=== PATIENT | male | born 1960 | race Caucasian/White ===

== ENCOUNTER 2016-06-15 18:43 | Emergency (ER) | payer BC ==
[2016-06-15 18:57] VITALS: BP 157/99; PULSE 73; TEMP 97.6; BMI 27.4
--- NOTE | 2016-06-15 19:45 | PDOC ---
History of Present Illness - General History Source: Patient Exam Limitations: No Limitations - History of Present Illness Initial Comments: 06/15/16 19:40 56 year old male with no significant medication or surgical history present with complaints of left eye injury while working cutting a pipe in the basement. States pipe slipped and hit him in his left eye. Reports no blurred vision, but with discomfort and itching since incident. States using red eye relief since then. 06/15/16 19:42 Timing/Duration: other (2 days ago ) Severity: moderate Modifying Factors: improves with: medication Associated Symptoms: reports: headaches. denies: fever/chills, nausea/vomiting , seizure, shortness of breath Aspirin Received prior to arrival: Yes: no aspirin today Asa Contraindications(Core Measure): No: Allergy Beta Johanne Contraindications(Core Measure): Yes: Not Prescribed Beta Johanne Given by EMS(Core Measure): No Beta Johanne Taken at Home(Core Measure): No Beta Johanne Not Indicated at this Time(Core Measure): No <Elisabet Arguello - Last Filed: 06/15/16 20:13> <Naya Pérez - Last Filed: 06/16/16 00:06> - General Chief Complaint: Eye Problem Stated Complaint: EYE PROBLEM Time Seen by Provider: 06/15/16 19:12 Past History - Travel Traveled outside of the country in the last 30 days: No Close contact w/someone who was outside of country & ill: No - Past Medical History Other medical history: none - Psycho/Social/Smoking Cessation Hx Anxiety: No Suicidal Ideation: No Smoking History: Never smoked Have you smoked in the past 12 months: No Information on smoking cessation initiated: No Hx Alcohol Use: No Drug/Substance Use Hx: No Substance Use Type: None <Elisabet Arguello - Last Filed: 06/15/16 20:13> <Naya Pérez - Last Filed: 06/16/16 00:06> - Past Medical History Allergies/Adverse Reactions: Allergies Allergy/AdvReac Type Severity Reaction Status Date / Time No Known Allergies Allergy Verified 06/15/16 18:54 Home Medications: Ambulatory Orders NK [No Known Home Medication] 06/15/16 Review of Systems - Review of Systems Able to Perform ROS?: Yes Is the patient limited Tunisian proficient: No Constitutional: Yes: Malaise. No: Chills, Fever, Loss of Appetite, Night Sweats , Weakness HEENTM: Yes: Eye Pain, Tearing, Other (redness and swelling of left eye). No: Blurred Vision Respiratory: No: Cough, Shortness of Breath, Wheezing Cardiac (ROS): No: Irregular Heart Rate, Lightheadedness ABD/GI: No: Difficulty Swallowing, Nausea, Poor Appetite, Poor Fluid Intake : No: Hematuria, Incontinence, Testicular Swelling, Lesions Musculoskeletal: No: Back Pain, Muscle Weakness Integumentary: No: Erythema, Flushing Neurological: Yes: Headache. No: Numbness, Paresthesia <Elisabet Arguello - Last Filed: 06/15/16 20:13> *Physical Exam - Vital Signs Last Vital Signs Temp Pulse Resp BP Pulse Ox 97.6 F 73 18 157/99 100 06/15/16 18:54 06/15/16 18:54 06/15/16 18:54 06/15/16 18:54 06/15/16 18:54 - Physical Exam General Appearance: Yes: Nourished, Appropriately Dressed. No: Apparent Distress HEENT: positive: EOMI, GIOVANNY, Normal ENT Inspection, TMs Normal, Pharynx Normal, Scleral Icterus (L), Other (left eye with fluracein stain, positive uptake at 9 O'clock) Neck: positive: Supple. negative: Lymphadenopathy (R), Lymphadenopathy (L) Respiratory/Chest: positive: Lungs Clear, Normal Breath Sounds. negative: Respiratory Distress, Accessory Muscle Use Cardiovascular: positive: Regular Rhythm, Regular Rate, S1, S2 Extremity: positive: Normal Capillary Refill, Normal Inspection, Normal Range of Motion <Elisabet Arguello - Last Filed: 06/15/16 20:13> - Vital Signs Last Vital Signs Temp Pulse Resp BP Pulse Ox 97.6 F 73 18 157/99 100 06/15/16 18:54 06/15/16 18:54 06/15/16 18:54 06/15/16 18:54 06/15/16 18:54 <Naya Pérez - Last Filed: 06/16/16 00:06> ED Treatment Course - Medications Given in the ED: ED Medications Discontinued Medications Generic Name Dose Route Start Last Admin Trade Name Freq PRN Reason Stop Dose Admin Acetaminophen 1,000 mg 06/15/16 19:48 06/15/16 19:52 Tylenol - PO 06/15/16 19:49 1,000 mg ONCE ONE Administration Ketorolac Tromethamine 60 mg 06/15/16 21:55 06/15/16 21:59 Toradol Injection - IM 06/15/16 21:56 60 mg ONCE ONE Administration <Naya Pérez - Last Filed: 06/16/16 00:06> Medical Decision Making - Medical Decision Making 06/15/16 19:45 56 year old male with injury to left eye head ct 06/15/16 20:04 transferred to [facility]ICER Ervin Ponce for follow up with ct scan and disposition <Elisabet Arguello - Last Filed: 06/15/16 20:13> - Medical Decision Making 06/15/16 23:58 I evaluated patient and discussed CT-Scan results with patient and family regarding nasal bone fx. Razo lamp examination revealed no corneal abrasion, but metal foreign body in left eye with upper and lower lid swelling. Patient given tetanus and started on Augmentin for nasal bone fx. Discussed treatment plan with family who verbalized understanding. <Naya Pérez - Last Filed: 06/16/16 00:06> *DC/Admit/Observation/Transfer <Elisabet Arguello - Last Filed: 06/15/16 20:13> - Discharge Dispostion Admit: No <Naya Pérez - Last Filed: 06/16/16 00:06> Diagnosis at time of Disposition: Nasal bone fracture Qualifiers: Encounter type: initial encounter Fracture type: closed Qualified Code(s): S02.2XXA - Fracture of nasal bones, initial encounter for closed fracture Foreign body in eye Qualifiers: Encounter type: initial encounter Laterality: left Qualified Code(s): T15.92XA - Foreign body on external eye, part unspecified, left eye, initial encounter - Discharge Dispostion Disposition: HOME Condition at time of disposition: Stable - Referrals Referrals: Nereida Macias MD [Staff Physician] - - Patient Instructions Printed Discharge Instructions: DI for Foreign Body in the Eye, DI for Nose Fracture Additional Instructions: FOLLOW UP WITH DR. GUNN (OPHTHALOMOLOGY). CALL TO SCHEDULE APPOINTMENT TOMORROW. TAKE MEDICATIONS PRESCRIBED. ADMINISTER EYE DROPS FOLLOWS: 2 DROPS TO LEFT EYE EVERY 4 HOURS WHILE AWAKE X 2 DAYS, THEN 1 DROP EVERY 4 HOURS WHILE AWAKE X 3 DAYS. YOU MUST FOLLOW UP WITH AN ROOM SERVICE SERVER OR RECORD CENTER SPECIALIST WITHIN 72 HOURS. IF UNABLE RETURN TO EMERGENCY DEPARTMENT IMMEDIATELY. Rene GUNN (OPHTHALOMOLOGY). Thirrje pr plan t takimeve nesr. Elizabeth medikateodoroe si prshkruhet. Administruar angiea sy si m posht: 2 pika majtas EYE do 4 or ndrsa zgjuar X2 dit, pastaj 1 pik do 4 or ndrsa zgjuar X 3 ditve. Verito presley traveling sales executive ose ferozst bonilla 74 orve. ANDRES CHOE T CHAOAMENTADÁN borrero. Print Language: JAPANESE - Post Discharge Activity Work/School Note: Back to Work
[2016-06-15] MEDS ORDERED: ACETAMINOPHEN 500 MG TABLET (FP) PO ONE (19:48)
[2016-06-15] MEDS ORDERED: ACETAMINOPHEN 500 MG TABLET (FP) ONE (19:51)
[2016-06-15] MEDS ORDERED: KETOROLAC TROMETHAMINE 60 MG/2 ML VIAL ONE (21:55)
[2016-06-15] MEDS ORDERED: KETOROLAC TROMETHAMINE 60 MG/2 ML VIAL IM ONE (21:55)
[2016-06-15] MEDS ORDERED: FLUORESCEIN NA 1 EA STRIP OS ONE (23:24)
[2016-06-15] MEDS ORDERED: TETRACAINE 0.5% HCL 0.6ML DROPPER.BOTTLE OS ONE (23:24)
[2016-06-15] MEDS ORDERED: AMOX TR/POT CLAV 875MG/125MG TABLETS (FP) PO ONE (23:26)
[2016-06-15] MEDS ORDERED: TETANUS AND DIPHTHERIA TOXOID 0.5 ML DISP.SYRIN IM ONE (23:26)
[2016-06-15] MEDS ORDERED: AMOX TR/POT CLAV 875MG/125MG TABLETS (FP) ONE (23:44)
[2016-06-15] MEDS ORDERED: TETRACAINE 0.5% OPHTH SOLN 2 ML BOTTLE ONE (23:44)
[2016-06-15] MEDS ORDERED: FLUORESCEIN NA 1 EA STRIP ONE (23:45)
[2016-06-15] MEDS ORDERED: CIPROFLOXACIN 0.3% EYE DROPS 5 ML BOTTLE OS ONE (23:58)
[2016-06-16] MEDS ORDERED: CIPROFLOXACIN HCL 0.3% OPHTH 2.5ML BOTTLE ONE (00:06)
== END 2016-06-16 00:08 | disposition home or self-care (01) ==
LOC: JER 18:43 → JERFT 18:43 → JER 06-16 00:08
DX: S02.2XXA Fracture of nasal bones, initial encounter for closed fracture (principal); T15.82XA Foreign body in other and multiple parts of external eye, left eye, initial encounter; W22.8XXA Striking against or struck by other objects, initial encounter; Y93.89 Activity, other specified; Y92.018 Other place in single-family (private) house as the place of occurrence of the external cause; Y99.8 Other external cause status
CPT/HCPCS: 70486-TC; 99281-25